=== PATIENT | female | born 1965 | race Caucasian/White ===

== ENCOUNTER → 2018-07-12 | Outpatient (CLI) | payer BC ==
--- NOTE | 2018-07-13 00:56 | CONS ---
CONSULTATION REASON FOR CONSULTATION: Obstructive sleep apnea. HISTORY: This is a very pleasant 53-year-old female patient who has been diagnosed as having obstructive sleep apnea through [facility] under the care of Dr. Marin. The patient is coming to establish herself at [facility]. Sleep study was done at [facility] more than 5 years ago. Currently she is on CPAP pressure of 11 cm of water. I do not have any documentation on her original sleep study. She is currently using an Mery View View large size full-face mask. She is very compliant with her CPAP therapy and she continues to see the full benefit and clinical response. Based on the compliance data that was collected over the past 1 month, the patient has used his machine every night, compliant for more than 4 hours 100%, average CPAP use around 8..9 hours per night. Leak is 5 L/minute. AHI is down to 0.4. One concern is that despite her ongoing successful treatment, the patient continues to be somnolent and sleepy. Her current Pomfret Score is at 19. No history of head trauma. No history of meningitis. No history of substance abuse. She is on Lexapro for chronic anxiety/depression. Takes it 20 mg 1 tab in the morning. No other major comorbidities for now. No restlessness in lower extremities. No grinding of the teeth. No sleepwalking or sleep talking. She goes to bed around 9 p.m., wakes up at 6 a.m. in the morning, averaging around 8 to 10 hours of sleep per night. She drinks coffee in the morning. Her weight is down compared to last year by around 15 pounds. She sleeps on her side and she does not fall asleep while driving. No sleep paralysis. No hallucinations or cataplexy. PAST MEDICAL HISTORY: 1. Obstructive sleep apnea as discussed above. 2. Menopause. 3. Degenerative arthritis. 4. GERD. 5. Stress incontinence. SURGICAL HISTORY: Rotator cuff injury, right knee surgery, left knee surgery. DRUG ALLERGIES: Not known. OUTPATIENT MEDICATION LIST: Includes Prilosec 20 mg p.o. daily, Lexapro 20 mg p.o. daily, VESIcare 10 mg p.o. daily and Voltaren XR 100 mg p.o. daily. SOCIAL HISTORY: The patient is a nonsmoker. No history of alcohol. No history of IV drugs. 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 FAMILY HISTORY: Positive for obstructive sleep apnea. REVIEW OF SYSTEMS: A 14-point review of system was done. Positive findings are mentioned above in history of present illness. Of significance is her ongoing fatigue and sleepiness despite being on CPAP therapy. Snoring has subsided. No insomnia. No choking or gasping sensation. No grinding of the teeth. No sleepwalking. No anxiety or panic attacks. No palpitation no heartburn, no nocturia, no sweating, no depression. No sleep paralysis, hallucinations or cataplexy. PHYSICAL EXAMINATION: BP is 150/71, pulse 92, respirations 16, temperature 97.5, saturation 97% on room air. Height is 5 feet, weight 311 BMI 36.7, neck size 15-3/4 of an inch. GENERAL APPEARANCE: Calm comfortable. HEAD: Atraumatic, normocephalic. NECK: Supple. Mallampati class IV. There is no goiter or neck masses. LUNGS: Clear to auscultation. HEART: Sounds regular rate and rhythm. Normal S1, S2. No S3. No murmurs. ABDOMEN: Soft, nontender. No organomegaly. EXTREMITIES: No edema. No cyanosis or clubbing. NEUROLOGIC: The patient is alert and oriented x3. There are no focal neurological deficits. PSYCHIATRIC: Negative for anxiety or depression. SKIN: Negative for any wounds or ulcerations. IMPRESSION: 1. Obstructive sleep apnea. Currently on successful CPAP therapy at a pressure of 11 cm of water. Compliance data was checked and the patient has been fully compliant with an AHI of 0.4 while on treatment. 2. Residual hypersomnia with an Pomfret score of 19 despite being on adequate CPAP therapy. 3. Menopause. 4. GERD. 5. Stress urinary incontinence. 6. Degenerative arthritis. PLAN: 1. Discussed the findings with the patient. 2. Will obtain origin polysomnogram done at [facility]. 3. The patient has been effectively treated and her AHI is down to 0.4 and she is very compliant averaging more than 8 hours of CPAP use per night. She has residual hypersomnia, will give a trial of Provigil 12 mg to be taken in the morning for stimulation. Encourage weight loss. Implement good sleep hygiene measures. We will continue to follow. MMODL / IJN: [id number] /
== END ==
LOC: SLEEP 13:18
PROVIDERS: ATTEND Internal Medicine Critical Care Medicine
DX: G47.33 Obstructive sleep apnea (adult) (pediatric) (principal); F41.9 Anxiety disorder, unspecified; F32.9 Major depressive disorder, single episode, unspecified; K21.9 Gastro-esophageal reflux disease without esophagitis; N39.3 Stress incontinence (female) (male); M19.90 Unspecified osteoarthritis, unspecified site; Z79.1 Long term (current) use of non-steroidal anti-inflammatories (NSAID); Z78.0 Asymptomatic menopausal state; Z99.89 Dependence on other enabling machines and devices; Z98.890 Other specified postprocedural states; Z79.899 Other long term (current) drug therapy
CPT/HCPCS: 99211

== ENCOUNTER → 2018-11-18 | Outpatient (CLI) | payer BC ==
--- NOTE | 2018-11-20 20:01 | MR ---
EXAMINATION TYPE: MR knee LT wo con DATE OF EXAM: 11/18/2018 COMPARISON: Outside x-rays dated 11/09/2018 HISTORY: left knee pain TECHNIQUE: Multiplanar, multisequence imaging of the left knee is performed without IV contrast. FINDINGS: MEDIAL MENISCUS: There is a small radial tear of the free edge of the posterior horn of the medial me niscus and meniscal degeneration. Posterior root appears intact. LATERAL MENISCUS: Anterior and posterior horns are intact without tear. CRUCIATE LIGAMENTS: The anterior and posterior cruciate ligaments are intact and unremarkable. COLLATERAL LIGAMENTS: The medial collateral ligament and lateral collateral ligament complex are inta ct and unremarkable. EXTENSOR MECHANISM: Visualized quadriceps and patellar tendons are intact. EFFUSION: No significant suprapatellar joint effusion. POPLITEAL CYST: No popliteal/vera cyst. TRICOMPARTMENT SPACES: There are small tricompartmental osteophytes and very minimal medial compartme nt joint space narrowing. Mild patellofemoral compartment joint space narrowing is also seen. CARTILAGE: Signal heterogeneity of the lateral compartment cartilage is seen throughout as well as th e medial compartment with partial-thickness defect of the medial femoral condyle measuring 7 mm. Francisco llofemoral cartilage displays focal fissuring of the lateral facet, undermining of the patellar apex, and focal near full-thickness defect of the medial facet measuring 3 mm with underlying subchondral cyst formation. Subchondral cyst formation is also seen of the lateral facet. Trochlear cartilage dis plays multifocal fissuring. BONE MARROW SIGNAL: Intraosseous T2 hyperintense multiloculated distal tibial metaphyseal central T1 hypointense ganglion cyst is seen. OTHER: Minimal nonspecific infrapatellar subcutaneous edema and medial suprapatellar nonspecific sub cutaneous edema area IMPRESSION: 1. Small radial tear of the free edge posterior horn of the medial meniscus. 2. Mild tract compartment arthropathy and chondrosis, most pronounced in the patellofemoral compartme nt with early subchondral cystic formation of the patella in the lateral and medial facet.
== END | disposition home or self-care (01) ==
LOC: RADMRIMAIN 19:12
PROVIDERS: ATTEND Orthopaedic Surgery
DX: S83.242A Other tear of medial meniscus, current injury, left knee, initial encounter (principal); M17.12 Unilateral primary osteoarthritis, left knee

== ENCOUNTER 2019-02-16 13:56 | Day surgery (SDC) | payer BC ==
[2019-02-13 12:34] VITALS: BMI 35.4
--- NOTE | 2019-02-15 21:10 | HP ---
HISTORY AND PHYSICAL REASON FOR ADMISSION: Surgery scheduled for 02/16/2019 HISTORY OF PRESENT ILLNESS: Anu Buenorstro is a 54-year-old patient seen with progressive left knee pain. We discussed options for treatment. She elected to proceed with left knee arthroscopy. Consent was obtained. Cardiac clearance and medical clearances were provided. PAST MEDICAL HISTORY: Significant for depression, gastroesophageal reflux disease, history of DVT. PAST SURGICAL HISTORY: Knee arthroscopy, shoulder arthroscopy, hysterectomy. MEDICATIONS: Eliquis, metoprolol, omeprazole. ALLERGIES: None. SOCIAL HISTORY: She denies tobacco use. PHYSICAL EXAMINATION: Evaluation of the left knee: Range of motion is 0-125. There is tenderness along the medial joint line. Tenderness along the lateral joint line. Positive medial Rafa's. Positive lateral Rafa's. Ligaments are stable. Hip rotation is without pain. Distal neurovascular exam is intact. RADIOGRAPHS: Left knee radiographs revealed mild osteoarthritis. Left knee MRI revealed medial meniscal tear. IMPRESSION: 1. Internal derangement, left knee with medial meniscal tear. 2. Hypertension. 3. Asthma. 4. History of deep vein thrombosis. PLAN: Left knee arthroscopy with partial meniscectomy and debridement. Surgery scheduled for 02/16/2019. MMODL / IJN: [id number] /
[~2019-02-16 13:56] MED LIST: DEXAMETHASONE SOD PHOSPHATE 10 MG/ML 1 ML VIAL IV ONE; HYDROmorphone 0.5 MG/0.5 ML SYRINGE IVP PRN; LACTATED RINGERS 1,000 ML IV SCH; MIDAZOLAM 2 MG/2 ML VIAL IV PRN; ONDANSETRON 4 MG/2 ML VIAL IVP ONE
[2019-02-16] MEDS ORDERED: SCOPOLAMINE 1.5MG/72HR PATCH TRANSDERM ONE (14:30)
[2019-02-16] MEDS ORDERED: LIDOCAINE 1% 20 ML VIAL (10MG/ML) FOR IV START INTRADERMA ONE (14:31)
[2019-02-16] MEDS ORDERED: fentaNYL (PF) 50 MCG/ML 2 ML AMP ONE (15:06)
[2019-02-16] MEDS ORDERED: KETOROLAC 30 MG/ML 1 ML VIAL ONE (15:06)
[2019-02-16] MEDS ORDERED: MIDAZOLAM 2 MG/2 ML VIAL ONE (15:06)
[2019-02-16] MEDS ORDERED: SUCCINYLCHOLINE CHLORIDE 100 MG/5 ML SYR IV ONE (15:06)
[2019-02-16] MEDS ORDERED: PROPOFOL 10 MG/ML 20 ML VIAL IV ONE (15:06)
[2019-02-16] MEDS ORDERED: LIDOCAINE 1% INJ 10MG/ML (20 ML MDV) ONE (15:06)
[2019-02-16] MEDS ORDERED: LACTATED RINGERS 1,000 ML IV ONE (15:49)
[2019-02-16] MEDS ORDERED: BUPIVACAINE (PF) 0.25% 30 ML VIAL SQ ONE (15:54)
--- NOTE | 2019-02-16 16:15 | P.OP ---
Date of Procedure: 02/16/19 Preoperative Diagnosis: Internal derangement left knee Postoperative Diagnosis: 1. Tear lateral meniscus left knee 2. Grade 3/4 chondromalacia medial femoral condyle left knee 3. Grade 3 chondromalacia patella left knee 4. Reactive synovitis medial, lateral and suprapatellar compartments left knee Procedure(s) Performed: 1. Arthroscopic partial lateral meniscectomy left knee 2. Arthroscopic chondroplasty medial femoral condyle left knee 3. Arthroscopic microfracture medial femoral condyle left knee 4. Arthroscopic chondroplasty patella left knee 5. Arthroscopic partial synovectomy medial, lateral and suprapatellar compartments left knee Anesthesia: CK, local Surgeon: Denzel Bear Estimated Blood Loss (ml): 5 Pathology: none sent Condition: stable Disposition: PACU Indications for Procedure: 54-year-old patient seen with progressive left knee pain. After treatment options were discussed, she elected to proceed with arthroscopy. Operative Findings: See description of procedure Description of Procedure: Patient was taken to the operative suite. Patient underwent a general anesthetic by the department of anesthesia. Patient was given preoperative antibiotics. The left lower extremity was placed in a well-padded arthroscopic leg cobian. The left leg was prepped and draped in the normal sterile orthopedic fashion. A lateral parapatellar and suprapatellar incision was made. Trochars were inserted. Arthroscopy was initiated. Suprapatellar pouch revealed diffuse thick reactive synovitis. The patellofemoral joint appeared articulate congruently. There was grade 3 chondromalacia of the patella with some diffuse osteochondral tears present. There were also grade 2/3 chondromalacia changes of the femoral sulcus. The scope was guided into the medial gutter. No loose bodies or plica were identified. The scope was then guided into the medial compartment. A medial parapatellar incision was made. Trocar inserted followed by probe. The medial meniscus was found to be stable. There were areas of grade 3/4 chondromalacia weightbearing surface medial femoral condyle with some osteochondral tears present. There was thick reactive synovitis anteriorly. I performed a chondroplasty of the medial femoral condyle getting down to stable osteochondral tissue. I performed a partial synovectomy decompressing the thick reactive synovitis. There was an area of grade 4 chondromalacia with exposed bone medial femoral condyle. I performed a microfracture to that area penetrating the bone with resultant bleeding at the microfracture site. The residual osteochondral surface was stable. There was good decompression of the synovitis. Scope and probe were then guided into the intercondylar notch. Cruciates were identified, probed and found to be stable. The scope and probe were then guided into lateral compartment. There was a radial tear posterior horn and midbody area lateral meniscus. There were grade 1 chondral moist changes lateral femoral condyle. There was thick reactive synovitis anteriorly. I performed a partial lateral meniscectomy getting down to stable meniscal tissue. I performed a partial synovectomy decompressing the reactive synovitis. The residual meniscus was probed and found to be stable. There was good decompression of the synovitis. The scope was in guided back into the suprapatellar compartment. I introduced a motorized shaver into the suprapatellar compartment. I performed a chondroplasty of the patella gained down to stable osteochondral tissue. I performed a partial synovectomy decompressing reactive synovitis. The shaver was removed. I now took one more look on the entire knee, no residual debris. Instruments were now removed from the joint. The joint was infiltrated with .25% Marcaine. Steri-Strips were applied to the portal sites. Sterile dressings were applied. The patient was placed into a VITALY hose. No tourniquet was utilized. The patient was awakened, transferred to a bed and taken to recovery stable satisfactory condition.
[2019-02-16 16:18] VITALS: TEMP 97.3
[2019-02-16 16:20] VITALS: RESP 18
[2019-02-16 17:24] VITALS: PULSE 84
[2019-02-16 17:44] VITALS: BP 143/79
== END 2019-02-16 17:56 | disposition home or self-care (01) ==
LOC: OR 13:56
PROVIDERS: ATTEND Orthopaedic Surgery
DX: S83.242A Other tear of medial meniscus, current injury, left knee, initial encounter (principal); X58.XXXA Exposure to other specified factors, initial encounter; M22.42 Chondromalacia patellae, left knee; M65.862 Other synovitis and tenosynovitis, left lower leg; K21.9 Gastro-esophageal reflux disease without esophagitis; I34.0 Nonrheumatic mitral (valve) insufficiency; R00.2 Palpitations; R06.09 Other forms of dyspnea; D68.59 Other primary thrombophilia; E72.12 Methylenetetrahydrofolate reductase deficiency; G47.30 Sleep apnea, unspecified; Z99.89 Dependence on other enabling machines and devices; F32.9 Major depressive disorder, single episode, unspecified; J45.909 Unspecified asthma, uncomplicated; I38 Endocarditis, valve unspecified; M19.90 Unspecified osteoarthritis, unspecified site; Z90.710 Acquired absence of both cervix and uterus; Z79.01 Long term (current) use of anticoagulants; Z79.899 Other long term (current) drug therapy; Z86.711 Personal history of pulmonary embolism
CPT/HCPCS: 29881; 29879; 29876; J2250; J1100; J0690; J2405; J2001; J3010; J1885; J0330; J2704

== ENCOUNTER 2019-04-06 09:26 | Day surgery (SDC) | payer BC ==
[2019-04-05 08:33] VITALS: BMI 37.2
--- NOTE | 2019-04-05 14:47 | HP ---
HISTORY AND PHYSICAL DATE OF SURGERY: 04/06/2019 Anu Buenrostro is a 54-year-old patient seen with progressive right knee pain. We discussed options for treatment. She elected to proceed with arthroscopy. Consent was obtained. PAST MEDICAL HISTORY: Asthma, hypertension, gastroesophageal reflux disease. PAST SURGICAL HISTORY: Hysterectomy, knee arthroscopy, right shoulder arthroscopy. MEDICATIONS: 1. Eliquis. 2. Metoprolol. 3. Omeprazole. ALLERGIES: None. SOCIAL HISTORY: She denies tobacco use. PHYSICAL EVALUATION OF THE RIGHT KNEE: Range of motion 0-130. Mild to moderate effusion. Tenderness medial joint line. Positive medial Rafa's. Ligaments stable. Patellofemoral crepitus in range of motion. Hip rotation without pain. Distal neurovascular exam intact. RADIOGRAPHS OF THE RIGHT KNEE: Revealed mild osteoarthritic changes. IMPRESSION: 1. Internal derangement, right knee with meniscal tear versus osteochondral tear. 2. Hypertension. 3. Gastroesophageal reflux disease. PLAN: Right knee arthroscopy with partial meniscectomy versus chondroplasty and debridement. MMODL / IJN: [id number] /
[~2019-04-06 09:26] MED LIST changes: +LIDOCAINE 1% 20 ML VIAL (10MG/ML) FOR IV START INTRADERMA PRN; +SCOPOLAMINE 1.5MG/72HR PATCH TRANSDERM ONE
[2019-04-06] MEDS ORDERED: PROPOFOL 10 MG/ML 20 ML VIAL IV ONE (10:01)
[2019-04-06] MEDS ORDERED: SUCCINYLCHOLINE CHLORIDE 100 MG/5 ML SYR IV ONE (10:01)
[2019-04-06] MEDS ORDERED: MIDAZOLAM 2 MG/2 ML VIAL ONE (10:01)
[2019-04-06] MEDS ORDERED: LIDOCAINE 1% INJ 10MG/ML (20 ML MDV) ONE (10:01)
[2019-04-06] MEDS ORDERED: fentaNYL (PF) 50 MCG/ML 2 ML AMP ONE (10:01)
[2019-04-06] MEDS ORDERED: BUPIVACAIN-EPI 0.25%-1:200,000 30 ML VIAL SQ ONE (10:24)
--- NOTE | 2019-04-06 10:54 | P.OP ---
Date of Procedure: 04/06/19 Preoperative Diagnosis: Internal derangement right knee Postoperative Diagnosis: 1. Tear medial meniscus right knee 2. Grade 2 chondromalacia patella right knee 3. Reactive synovitis medial, lateral and suprapatellar compartments right knee Procedure(s) Performed: 1. Arthroscopic partial medial meniscectomy right knee 2. Arthroscopic chondroplasty patella right knee 3. Arthroscopic partial synovectomy medial, lateral and suprapatellar compartments right knee Anesthesia: EBENEZERA, local Surgeon: Denzel Bear Estimated Blood Loss (ml): 7 Pathology: none sent Condition: stable Disposition: PACU Indications for Procedure: 54-year-old patient seen with progressive right knee pain. After treatment options were discussed, she elected to proceed with arthroscopy. Operative Findings: see description of procedure Description of Procedure: Patient was taken to the operative suite. Patient underwent a general anesthetic by the department of anesthesia. Patient was given preoperative antibiotics. The right lower extremity was placed in a well-padded arthroscopic leg cobian. The right leg was prepped and draped in the normal sterile orthopedic fashion. A lateral parapatellar and suprapatellar incision was made. Trochars were inserted. Arthroscopy was initiated. Suprapatellar pouch revealed diffuse thick reactive synovitis. The patellofemoral joint appeared articulate congruently. There was grade 2 chondromalacia medial facet patella with osteochondral tears present. The scope was guided into the medial gutter. Bodies or plica were identified. The scope was then guided into the medial compartment. A medial parapatellar incision was made. Trocar inserted followed by probe. There was a radial tear in the posterior horn medial meniscus. There was thick reactive synovitis anteriorly. There was no significant chondromalacia present. I performed a partial medial meniscectomy. I performed a partial synovectomy. The residual meniscus was stable. There was good decompression of the synovitis. Scope and probe were then guided into the intercondylar notch. Cruciates were identified, probed and found to be stable. The scope and probe were then guided into lateral compartment. The lateral meniscus was probed and found to be stable. There was thick reactive synovitis anteriorly. I performed a partial synovectomy. There was good decompression of the synovitis. The scope was in guided back into the suprapatellar compartment. I introduced a motorized shaver into the suprapatellar compartment. I debrided some piecemeal fragments of meniscus I encountered. I performed a partial synovectomy. The shaver was removed. The residual osteochondral surface patella was stable. There was good decompression of synovitis. Instruments were now removed from the joint. The joint was infiltrated with .25% Marcaine. Steri-Strips were applied to the portal sites. Sterile dressings were applied. The patient was placed into a VITALY hose. No tourniquet was utilized. The patient was awakened, transferred to a bed and taken to recovery stable satisfactory condition.
[2019-04-06 10:57] VITALS: RESP 16; TEMP 98.2
[2019-04-06 13:23] VITALS: BP 140/74; PULSE 78
== END 2019-04-06 14:08 | disposition home or self-care (01) ==
LOC: OR 09:26
PROVIDERS: ATTEND Orthopaedic Surgery
DX: S83.241A Other tear of medial meniscus, current injury, right knee, initial encounter (principal); X58.XXXA Exposure to other specified factors, initial encounter; M22.41 Chondromalacia patellae, right knee; M65.861 Other synovitis and tenosynovitis, right lower leg; J45.909 Unspecified asthma, uncomplicated; I10 Essential (primary) hypertension; K21.9 Gastro-esophageal reflux disease without esophagitis; Z90.710 Acquired absence of both cervix and uterus; Z86.718 Personal history of other venous thrombosis and embolism; Z79.01 Long term (current) use of anticoagulants; Z79.899 Other long term (current) drug therapy
CPT/HCPCS: 29881; J2250; J1100; J0690; J2405; J2001; J3010; J0330; J2704; J1170

== ENCOUNTER 2019-04-11 11:56 | Emergency (ER) | payer BC ==
[2019-04-11 12:03] VITALS: BP 147/83; PULSE 91; RESP 18; TEMP 98.1
--- NOTE | 2019-04-11 13:00 | US ---
EXAMINATION TYPE: US venous doppler duplex LE RT DATE OF EXAM: 04/11/2019 12:47 PM COMPARISON: none CLINICAL HISTORY: pain. Right calf pain post right knee arthroscopy 5 days ago; on blood thinner for left leg DVT and PE. SIDE PERFORMED: Right TECHNIQUE: The lower extremity deep venous system is examined utilizing real time linear array sonog ander with graded compression, doppler sonography and color-flow sonography. VESSELS IMAGED: Common Femoral Vein Deep Femoral Vein Greater Saphenous Vein * Femoral Vein Popliteal Vein Small Saphenous Vein * Proximal Calf Veins (* superficial vessels) Right Leg: Negative for DVT Grayscale, color doppler, spectral doppler imaging performed of the deep veins of the right lower ext remity. There is normal flow, compressibility, vascular waveforms. IMPRESSION: No ultrasound evidence for acute DVT in the right lower extremity.
--- NOTE | 2019-04-11 13:08 | ED ---
Extremity Problem HPI - General Chief complaint: Extremity Problem,Nontraumatic Stated complaint: poss DVT rt leg Time Seen by Provider: 04/11/19 12:04 Source: patient, RN notes reviewed Mode of arrival: wheelchair Limitations: no limitations - History of Present Illness Initial comments: 54-year-old female presents emergency Department chief complaint of right leg pain. Patient states that she had surgery on [address] Atul montaño. Patient states that she had pain after surgery in her calf and was concerned that she is old blood clot. Patient states she take Eliquis on a regular basis. She states that she was transitioned from Eliquis to Lovenox prior to surgery and then restarted her Eliquis after surgery. She has any april st pain or shortness of breath. Patient had a history of DVTs. - Related Data Home Medications Medication Instructions Recorded Confirmed Apixaban [Eliquis] 5 mg PO BID 02/14/19 04/06/19 Escitalopram Oxalate [Lexapro] 20 mg PO QAM 02/14/19 04/06/19 Ferrous Sulfate [Iron] 325 mg PO DAILY 02/14/19 04/06/19 Folic Acid 1 mg PO DAILY 02/14/19 04/06/19 Lisinopril [Zestril] 10 mg PO QAM 02/14/19 04/06/19 Lovenox (Unknown Dose) 1 dose SQ DAILY 02/14/19 04/06/19 Metoprolol 25 mg PO QAM 02/14/19 04/06/19 Omeprazole [PriLOSEC] 20 mg PO QAM 02/14/19 04/06/19 Solifenacin Succinate 10 mg PO QAM 02/14/19 04/06/19 Previous Rx's Medication Instructions Recorded Hydrocodone/Acetaminophen [Jupiter 1 each PO Q6HR PRN #15 tab 04/06/19 5-325] Allergies Allergy/AdvReac Type Severity Reaction Status Date / Time No Known Allergies Allergy Verified 04/06/19 09:39 Review of Systems ROS Statement: Those systems with pertinent positive or pertinent negative responses have been documented in the HPI. ROS Other: All systems not noted in ROS Statement are negative. Past Medical History Past Medical History: Asthma, Blood Disorder, Deep Vein Thrombosis (DVT), GERD/Reflux, Hypertension, Musculoskeletal Disorder, Osteoarthritis (OA), Pulmonary Embolus (PE), Sleep Apnea/CPAP/BIPAP Additional Past Medical History / Comment(s): Leaky heart valves. PE X2, last 07/2018. Thrombocythemia, MTHFR mutation, hx anemia. Lt knee meniscus tear. Uses CPAP. History of Any Multi-Drug Resistant Organisms: None Reported Past Surgical History: Hysterectomy, Orthopedic Surgery Additional Past Surgical History / Comment(s): Rt & Lt knee scope. Rt Rotator cuff. right knee repair 04/06 Past Anesthesia/Blood Transfusion Reactions: Previous Problems w/ Anesthesia, Motion Sickness Additional Past Anesthesia/Blood Transfusion Reaction / Comment(s): Hard to awaken from Anesthesia. Past Psychological History: No Psychological Hx Reported Smoking Status: Never smoker Past Alcohol Use History: None Reported Past Drug Use History: None Reported - Past Family History Mother Family Medical History: No Reported History General Exam Limitations: no limitations General appearance: alert, in no apparent distress Head exam: Present: atraumatic, normocephalic, normal inspection Respiratory exam: Present: normal lung sounds bilaterally. Absent: respiratory distress, wheezes, rales, rhonchi, stridor Cardiovascular Exam: Present: regular rate, normal rhythm, normal heart sounds. Absent: systolic murmur, diastolic murmur, rubs, gallop, clicks Extremities exam: Present: other (Tenderness the right calf, mild swelling of the right knee neurovascular intact) Course Vital Signs 04/11/19 11:58 Temperature 98.1 F Pulse Rate 91 Respiratory 18 Rate Blood Pressure 147/83 O2 Sat by Pulse 95 Oximetry Medical Decision Making - Medical Decision Making Ultrasound was negative for acute DVT. Patient most likely related to surgery. Patient is anticoagulated on Eliquis currently. Disposition Clinical Impression: Right leg pain Disposition: HOME SELF-CARE Condition: Stable Instructions (If sedation given, give patient instructions): Leg Pain (ED) Additional Instructions: Please return to the Emergency Department if symptoms worsen or any other concerns. Is patient prescribed a controlled substance at d/c from ED?: No Referrals: Lin Cross MD [Primary Care Provider] - 1-2 days Time of Disposition: 13:08
== END 2019-04-11 13:15 | disposition home or self-care (01) ==
LOC: EC 11:56
DX: M79.604 Pain in right leg (principal); K21.9 Gastro-esophageal reflux disease without esophagitis; I10 Essential (primary) hypertension; M19.90 Unspecified osteoarthritis, unspecified site; G47.30 Sleep apnea, unspecified; I34.0 Nonrheumatic mitral (valve) insufficiency; Z86.711 Personal history of pulmonary embolism; Z79.01 Long term (current) use of anticoagulants; Z79.899 Other long term (current) drug therapy; Z99.89 Dependence on other enabling machines and devices; Z86.718 Personal history of other venous thrombosis and embolism
CPT/HCPCS: 99284

== ENCOUNTER → 2021-01-28 | Outpatient (CLI) | payer BC ==
--- NOTE | 2021-01-28 16:25 | PN ---
PROGRESS NOTE 56-year-old female patient, coming in for a followup regarding obstructive sleep apnea. Her last evaluation with me was back in June of 2018. Since then, the patient has been very compliant with CPAP therapy and continues to use the same machine. The machine has been malfunctioning and it has become loud and at times it is turning off without any previous warning in the middle of the night. For that reason, the patient is interested in updating her CPAP machine. Currently, she is using an M[employer] View full- face mask. Note that her previous study was done at [facility] back in February 08, 2014 and at that time the patient had an AHI of 25. Over the past 2 and 1/2 years, the patient continued to use her CPAP pressure of 11 cm of water. She has lost around 4 pounds since her last evaluation. She has been averaging around 8.8 hours of CPAP use per night with a leak of 1 L/minute and her AHI is down to 0.5. No new onset medical problems or comorbidities. No significant weight gain or weight loss. No angina. No palpitations. No shortness of breath. No stroke. No cardiac arrhythmias. PAST MEDICAL HISTORY: Obstructive sleep apnea, previous history of DVT, urinary incontinence, degenerative arthritis and GERD. SURGICAL HISTORY: Includes left knee surgery, right knee surgery, rotator cuff injury with subsequent surgery. MEDICATIONS: Include Eliquis 5 mg twice a day, Lexapro 20 mg p.o. daily, lisinopril 10 mg p.o. daily, omeprazole 20 mg p.o. daily, metoprolol 25 mg p.o. daily. REVIEW OF SYSTEMS: Fourteen-point review of system was done positive findings are mentioned in history of present illness. PHYSICAL EXAMINATION: BP is 139/77, pulse 100, respirations 24, temperature 97.4, saturation 94% on room air. [place] score is at 13. BMI is 35.5. Height is 5 feet, 4 inches, weight is 207. GENERAL appearance: Calm, comfortable. HEAD atraumatic, normocephalic. NECK: Supple. No JVD. No goiter or neck masses. Mallampati class 4. LUNGS: Clear to auscultation. HEART: Heart sounds are regular rate and rhythm. Normal S1, S2. No S3, S4. No murmurs. ABDOMEN: Soft, nontender. No organomegaly. EXTREMITIES: No edema. No cyanosis or clubbing. IMPRESSION: 1. Obstructive sleep apnea AHI of 25. Based on the study that was done February 08, 2014. The patient remains on CPAP pressure of 11 cm of water. Treatment is successful. Machine needs to be updated as it is malfunctioning. 2. Hypersomnia, stable. Current CPAP pressure of 11 cm of water. 3. Obesity, stable weight, BMI 35.5 with a body weight of 207. 4. Chronic hypersomnia, Green[place] score of 13. 5. History of deep vein thrombosis, maintained on long-term anticoagulation with Eliquis. 6. Acid reflux. 7. Degenerative arthritis. 8. Stress urine incontinence. PLAN: 1. Continue same medical treatment. 2. We will send a prescription for a new CPAP machine at a pressure of 11 cm of water. I will send a prescription for a newer-generation ResMed unit and Auto set for any future adjustments if needed. I think these orders should go through without any issues. If not, and if needed, a home sleep study will be ordered to reestablish diagnosis. The patient will see me back in the office in 30 to 90 days after obtaining a new CPAP machine for another compliancy check. MMODL / IJN: [id number] /
== END ==
LOC: SLEEP 15:12
PROVIDERS: ATTEND Internal Medicine Critical Care Medicine
DX: G47.33 Obstructive sleep apnea (adult) (pediatric) (principal); E66.9 Obesity, unspecified; K21.9 Gastro-esophageal reflux disease without esophagitis; M19.90 Unspecified osteoarthritis, unspecified site; N39.3 Stress incontinence (female) (male); Z99.89 Dependence on other enabling machines and devices; Z86.718 Personal history of other venous thrombosis and embolism; Z68.35 Body mass index [BMI] 35.0-35.9, adult

== ENCOUNTER → 2023-09-10 | Outpatient (CLI) | payer BC ==
--- NOTE | 2023-09-13 12:34 | MM ---
Reason for Exam: Screening (asymptomatic). Last mammogram was performed 5 year(s) and 6 month(s) ago. Patient History: Menarche at age 13. First Full-Term at age 18. Left ovary removed at age 53. Right ovary removed at age 53. Hysterectomy at age 53. Postmenopausal. Maternal grandmother had breast cancer at or over age 50. Risk Values: Lucy 5 year model risk: 0.9%. NCI Lifetime model risk: 5.0%. Prior Study Comparison: 12/11/2013 Bilateral Screening Mammogram, Unknown. 02/23/2018 Bilateral Screening Mammogram, Unknown. Tissue Density: The breasts are heterogeneously dense, which may obscure small masses. Findings: Analyzed By CAD. The pattern is symmetrical. There is a subtle distortion of the medial left cranial caudal projection. This may be in the upper breast on the mediolateral. Compression views over this area is recommended. Right breast:No suspicious groups of microcalcifications, spiculated or lobular masses, architectural distortion or other secondary signs of malignancy are mammographically apparent. Overall Assessment: Incomplete: need additional imaging evaluation, BI-RAD 0 Management: Diagnostic Mammogram of the left breast. A negative mammogram report should not preclude additional follow up of suspicious palpable abnormalities. Patient should continue monthly self breast exam. A clinical breast exam by your physician is recommended on an annual basis and results should be correlated with mammographic findings. Note on Lucy scores and lifetime risk: 1. A Lucy score greater than 3% is considered moderate risk. If this is the case, consider specialist referral to assess eligibility for a risk reducing agent. 2. If overall lifetime risk for the development of breast cancer is 20% or higher, the patient may qualify for future screening with alternating mammogram and breast MRI. Electronically signed and approved by: Daniel Avalos D.O. Radiologis
== END | disposition home or self-care (01) ==
LOC: RADMAMWWP 12:43
PROVIDERS: ATTEND Family Medicine
DX: Z12.31 Encounter for screening mammogram for malignant neoplasm of breast (principal); Z78.0 Asymptomatic menopausal state; Z80.3 Family history of malignant neoplasm of breast
CPT/HCPCS: 77067

== ENCOUNTER → 2023-09-15 | Outpatient (CLI) | payer BC ==
--- NOTE | 2023-09-15 08:18 | MM ---
Reason for Exam: Additional evaluation requested from abnormal screening. Last screening mammogram was performed less than 1 month ago. Patient History: Menarche at age 13. First Full-Term at age 18. Left ovary removed at age 53. Right ovary removed at age 53. Hysterectomy at age 53. Postmenopausal. Maternal grandmother had breast cancer at or over age 50. Risk Values: Lucy 5 year model risk: 0.9%. NCI Lifetime model risk: 5.0%. Prior Study Comparison: 12/11/2013 Bilateral Screening Mammogram, Unknown. 02/23/2018 Bilateral Screening Mammogram, Unknown. 09/10/2023 Bilateral MG screening mammo w CAD, [facility]. Tissue Density: Left: The breasts are heterogeneously dense, which may obscure small masses. Findings: Analyzed By CAD. The pattern is symmetrical. Under compression there is partial dispersion of the density in the inner aspect left breast. Suspicious abnormality is not evident on the medial lateral view. Precautionary 6 month follow-up recommended. Overall Assessment: Probably benign, BI-RAD 3 Management: Diagnostic Mammogram of the left breast in 6 months. A negative mammogram report should not preclude additional follow up of suspicious palpable abnormalities. Patient should continue monthly self breast exam. A clinical breast exam by your physician is recommended on an annual basis and results should be correlated with mammographic findings. Note on Lucy scores and lifetime risk: 1. A Lucy score greater than 3% is considered moderate risk. If this is the case, consider specialist referral to assess eligibility for a risk reducing agent. 2. If overall lifetime risk for the development of breast cancer is 20% or higher, the patient may qualify for future screening with alternating mammogram and breast MRI. Electronically signed and approved by: Daniel Avalos D.O. Radiologis
== END | disposition home or self-care (01) ==
LOC: RADMAMWWP 07:50
PROVIDERS: ATTEND Family Medicine
DX: R92.332 Mammographic heterogeneous density, left breast (principal); Z80.3 Family history of malignant neoplasm of breast; Z78.0 Asymptomatic menopausal state
CPT/HCPCS: 77061; 77065